=== PATIENT | female | born 1995 | race Caucasian/White ===

== ENCOUNTER 2020-09-18 16:25 | Emergency (ER) | payer MEDICAID ==
[~2020-09-18] VITALS: Ht 154.9 cm; Wt 56.7 kg
[2020-09-18 19:36] VITALS: BP 110/70
== END 2020-09-18 19:36 | disposition home or self-care (01) ==
LOC: ER 16:25
DX: M26.623 Arthralgia of bilateral temporomandibular joint (principal); K02.9 Dental caries, unspecified
CPT/HCPCS: 70486

== ENCOUNTER 2021-09-13 09:20 | Emergency (ER) | payer OTHER, MEDICAID ==
[~2021-09-13] VITALS: Ht 154.9 cm; Wt 59.0 kg
[2021-09-13 10:06] LABS: Urine Bacteria FEW /hpf (None Seen); Urine Blood Negative /uL (Negative); Urine Specific Gravity 1.004 (1.001-1.035); Urine WBC 1 /hpf (0 - 5)
[2021-09-13 10:46] LABS: Basophils # (auto) 0.1 10 ^3/uL (0-0.2); Basophils % (auto) 1.9 % (0.0-2.0); Eosinophils # (auto) 0 10 ^3/uL (0-0.8); Eosinophils % (auto) 0.4 % (0.0-7.0); Hematocrit 38.9 % (36.0-46.0); Hemoglobin 12.8 g/dL (12.2-16.2); Lymphocytes # (auto) 1.7 10 ^3/uL (0.4-5.4); Lymphocytes % (auto) 34.6 % (10.0-50.0); Mean Corpuscular Hemoglobin 27.2 pg (28.0-32.0); Mean Corpuscular Hgb Conc. 32.8 g/dL (32.0-36.0); Mean Corpuscular Volume 83.1 fL (80.0-100.0); Monocytes # (auto) 0.3 10 ^3/uL (0-1.3); Monocytes % (auto) 6.9 % (0.0-12.0); Neutrophils # (auto) 2.8 10 ^3/uL (1.6-8.6); Neutrophils % (auto) 56.2 % (37.0-80.0); Nucleated Red Blood Cells % 0.1 %; Red Blood Cells 4.69 10^6/uL (4.0-5.20); Red Cell Distribution Width 15.5 % (11.8-14.3); White Blood Cell 4.9 10^3/uL (4.4-10.8)
[2021-09-13 10:57] LABS: Albumin 4.6 g/dL (3.4-5.0); Amylase 66 U/L (25-115); Anion Gap 6 (5-15); Calcium 9.7 mg/dL (8.5-10.1); Carbon Dioxide 24 mmol/L (21-32); Chloride 107 mmol/L (98-107); Glucose 91 mg/dL (74-106); Lipase 142 U/L (73-393); Potassium 3.4 mmol/L (3.5-5.1); Sodium 137 mmol/L (136-145)
[2021-09-13 11:05] LABS: Alanine Aminotransferase 33 U/L (13-56); Alkaline Phosphatase 52 U/L (45-117); Aspartate Aminotransferase 24 U/L (15-37); BUN/Creatinine Ratio 9.3; Bilirubin, Total 0.5 mg/dL (0.2-1.0); Blood Urea Nitrogen 8 mg/dL (7-18); GFR African American 101 mL/min; GFR Non-African American 84 mL/min; Total Protein 8.8 g/dL (6.4-8.2)
[2021-09-13] MEDS ORDERED: PERCOT PO (11:27)
[2021-09-13] MEDS ORDERED: NITR-87 PO (11:27)
[2021-09-13] MEDS ORDERED: ONDA-144 PO (11:27)
[2021-09-13 11:55] VITALS: BP 112/77
== END 2021-09-13 11:55 | disposition home or self-care (01) ==
LOC: ER 09:20
DX: N39.0 Urinary tract infection, site not specified (principal); N76.0 Acute vaginitis
CPT/HCPCS: 36415; 74176; 80053; 81001; 82150; 83690; 84484; 85025